=== PATIENT | female | born 1940 | race Asian ===

== ENCOUNTER → 2016-04-07 | Outpatient (CLI) | payer BC ==
[~2016-04-07] MED LIST: ATEN50TA; TIMO5DRO7
[2016-04-07 15:37] LABS: BASOPHILS % 0.8 % (0.0-2.0); EOSINOPHILS # 0.5 10^3/ul (0.0-0.5); EOSINOPHILS % 10.6 % (0.0-7.0); HEMATOCRIT 40.7 % (37.0-47.0); HEMOGLOBIN 13.5 g/dl (12.0-16.0); LYMPHOCYTES # 1.2 10^3/ul (0.8-2.9); LYMPHOCYTES % 26.7 % (15.0-51.0); MEAN CORPUSCULAR HEMOGLOBIN 32.3 pg (29.0-33.0); MEAN CORPUSCULAR HGB CONC 33.2 g/dl (32.0-37.0); MEAN CORPUSCULAR VOLUME 97.3 fl (82.0-101.0); MEAN PLATELET VOLUME 7.9 fl (7.4-10.4); MONOCYTE # 0.5 10^3/ul (0.3-0.9); MONOCYTES % 11.4 % (0.0-11.0); NEUTROPHIL # 2.2 10^3/ul (1.6-7.5); NEUTROPHILS % 50.5 % (39.0-77.0); PLATELET COUNT 191 10^3/UL (140-440); RED BLOOD COUNT 4.18 10^6/ul (4.20-5.40); RED CELL DISTRIBUTION WIDTH 15.1 % (11.5-14.5); UNCORRECTED WBC 4.4 10^3/ul (4.8-10.8); WHITE BLOOD COUNT 4.4 10^3/ul (4.8-10.8)
[2016-04-07 15:38] LABS: CONDITION 1; LH ANALYZER COMMENTS 1
[2016-04-07 16:04] LABS: ALBUMIN 4.6 g/dl (3.3-4.9); CHLORIDE 97 mmol/L (97-110)
[2016-04-07 16:05] LABS: SODIUM 140 mmol/L (135-144)
[2016-04-07 16:07] LABS: ALBUMIN/GLOBULIN RATIO 1.53; ALKALINE PHOSPHATASE 83 IU/L (42-121); ANION GAP 16 (8-16); ASPARTATE AMINO TRANSFERASE 44 IU/L (15-46); BILIRUBIN,INDIRECT 0.4 mg/dl (0-1.1); BILIRUBIN,TOTAL 0.4 mg/dl (0.2-1.3); CARBON DIOXIDE 31 mmol/L (21-31); CREATININE 0.64 mg/dl (0.44-1.00); TOTAL PROTEIN 7.6 g/dl (6.1-8.1)
[2016-04-07 16:08] LABS: ALANINE AMINOTRANSFERASE 39 IU/L (13-69); BLOOD UREA NITROGEN 16 mg/dl (7-20); CALCIUM 9.4 mg/dl (8.4-10.2); GLUCOSE 95 mg/dl (70-220)
[2016-04-07 17:48] LABS: FOLATE > 20.0 ng/ml (2.8-20.0)
== END | disposition home or self-care (01) ==
LOC: LAB 15:10
PROVIDERS: ATTEND Internal Medicine Hematology & Oncology
DX: D46.9 Myelodysplastic syndrome, unspecified (principal)
CPT/HCPCS: 80053; 82728; 82746; 85025

== ENCOUNTER → 2016-04-27 | Outpatient (CLI) | payer BC ==
[2016-04-27 06:15] LABS: ALBUMIN 4.2 g/dl (3.3-4.9)
[2016-04-27 06:16] LABS: POTASSIUM 4.4 mmol/L (3.5-5.1)
[2016-04-27 06:18] LABS: ALBUMIN/GLOBULIN RATIO 1.27; BILIRUBIN,INDIRECT 0.3 mg/dl (0-1.1); BILIRUBIN,TOTAL 0.3 mg/dl (0.2-1.3); CREATININE 0.61 mg/dl (0.44-1.00); TOTAL PROTEIN 7.5 g/dl (6.1-8.1)
[2016-04-27 06:19] LABS: CALCIUM 9.2 mg/dl (8.4-10.2); CHOL/HDL RATIO 3.3 RATIO
[2016-04-27 06:28] LABS: BASOPHILS % 0.8 % (0.0-2.0); EOSINOPHILS # 0.5 10^3/ul (0.0-0.5); EOSINOPHILS % 13.7 % (0.0-7.0); HEMATOCRIT 41.4 % (37.0-47.0); HEMOGLOBIN 13.8 g/dl (12.0-16.0); LYMPHOCYTES # 1.4 10^3/ul (0.8-2.9); LYMPHOCYTES % 34.8 % (15.0-51.0); MEAN CORPUSCULAR HEMOGLOBIN 31.5 pg (29.0-33.0); MEAN CORPUSCULAR HGB CONC 33.4 g/dl (32.0-37.0); MEAN CORPUSCULAR VOLUME 94.3 fl (82.0-101.0); MEAN PLATELET VOLUME 7.4 fl (7.4-10.4); MONOCYTE # 0.5 10^3/ul (0.3-0.9); MONOCYTES % 12.2 % (0.0-11.0); NEUTROPHIL # 1.5 10^3/ul (1.6-7.5); NEUTROPHILS % 38.5 % (39.0-77.0); PLATELET COUNT 279 10^3/UL (140-440); RED BLOOD COUNT 4.39 10^6/ul (4.20-5.40); RED CELL DISTRIBUTION WIDTH 15.1 % (11.5-14.5)
[2016-04-27 06:41] LABS: CONDITION 1; LH ANALYZER COMMENTS 1
[2016-04-27 06:49] LABS: THYROID STIMULATING HORMONE 1.86 MIU/L (0.465-4.680)
== END | disposition home or self-care (01) ==
LOC: LAB 05:34
PROVIDERS: ATTEND Internal Medicine
DX: E78.5 Hyperlipidemia, unspecified (principal); R73.03 Prediabetes; E03.9 Hypothyroidism, unspecified
CPT/HCPCS: 80053; 80061; 83036; 84436; 84443; 85025

== ENCOUNTER → 2016-05-20 | Outpatient (CLI) | payer BC ==
[2016-05-20 15:15] LABS: BASOPHILS % 0.8 % (0.0-2.0); EOSINOPHILS # 0.2 10^3/ul (0.0-0.5); EOSINOPHILS % 5.9 % (0.0-7.0); HEMATOCRIT 41.6 % (37.0-47.0); LYMPHOCYTES # 1.4 10^3/ul (0.8-2.9); LYMPHOCYTES % 38.6 % (15.0-51.0); MEAN CORPUSCULAR HEMOGLOBIN 31.7 pg (29.0-33.0); MEAN CORPUSCULAR HGB CONC 33.7 g/dl (32.0-37.0); MEAN PLATELET VOLUME 8.1 fl (7.4-10.4); MONOCYTE # 0.3 10^3/ul (0.3-0.9); MONOCYTES % 8.8 % (0.0-11.0); NEUTROPHIL # 1.6 10^3/ul (1.6-7.5); NEUTROPHILS % 45.9 % (39.0-77.0); PLATELET COUNT 233 10^3/UL (140-440); RED BLOOD COUNT 4.42 10^6/ul (4.20-5.40); RED CELL DISTRIBUTION WIDTH 16.1 % (11.5-14.5); UNCORRECTED WBC 3.6 10^3/ul (4.8-10.8); WHITE BLOOD COUNT 3.6 10^3/ul (4.8-10.8)
[2016-05-20 15:18] LABS: ALBUMIN 4.4 g/dl (3.3-4.9); CHLORIDE 102 mmol/L (97-110); CONDITION 1; LH ANALYZER COMMENTS 1
[2016-05-20 15:19] LABS: POTASSIUM 4.3 mmol/L (3.5-5.1); SODIUM 140 mmol/L (135-144)
[2016-05-20 15:21] LABS: ALBUMIN/GLOBULIN RATIO 1.69; ALKALINE PHOSPHATASE 99 IU/L (42-121); ANION GAP 16 (8-16); ASPARTATE AMINO TRANSFERASE 48 IU/L (15-46); BILIRUBIN,INDIRECT 0.4 mg/dl (0-1.1); BILIRUBIN,TOTAL 0.4 mg/dl (0.2-1.3); BLOOD UREA NITROGEN 17 mg/dl (7-20); CARBON DIOXIDE 26 mmol/L (21-31); GLUCOSE 102 mg/dl (70-220)
[2016-05-20 15:22] LABS: ALANINE AMINOTRANSFERASE 47 IU/L (13-69); CALCIUM 9.1 mg/dl (8.4-10.2)
[2016-05-20 16:32] LABS: FOLATE > 20.0 ng/ml (2.8-20.0)
== END | disposition home or self-care (01) ==
LOC: LAB 14:37
PROVIDERS: ATTEND Internal Medicine Hematology & Oncology
DX: D46.9 Myelodysplastic syndrome, unspecified (principal)
CPT/HCPCS: 80053; 82728; 82746; 85025

== ENCOUNTER → 2016-07-19 | Outpatient (CLI) | payer BC ==
[2016-07-19 15:37] LABS: ADD SCAN DIFF NO
[2016-07-19 15:41] LABS: BASOPHIL # 0.1 10^3/ul (0.0-0.1); BASOPHILS % 1.3 % (0.0-2.0); EOSINOPHILS # 0.2 10^3/ul (0.0-0.5); EOSINOPHILS % 5.1 % (0.0-7.0); HEMATOCRIT 38.2 % (37.0-47.0); HEMOGLOBIN 12.9 g/dl (12.0-16.0); LYMPHOCYTES # 1.6 10^3/ul (0.8-2.9); LYMPHOCYTES % 43.6 % (15.0-51.0); MEAN CORPUSCULAR HEMOGLOBIN 32.8 pg (29.0-33.0); MEAN CORPUSCULAR HGB CONC 33.8 g/dl (32.0-37.0); MEAN CORPUSCULAR VOLUME 97.2 fl (82.0-101.0); MEAN PLATELET VOLUME 9.8 fl (7.4-10.4); MONOCYTE # 0.4 10^3/ul (0.3-0.9); MONOCYTES % 9.9 % (0.0-11.0); NEUTROPHIL # 1.5 10^3/ul (1.6-7.5); NEUTROPHILS % 40.1 % (39.0-77.0); PLATELET COUNT 244 10^3/UL (140-415); RED BLOOD COUNT 3.93 10^6/ul (4.20-5.40); RED CELL DISTRIBUTION WIDTH 15.9 % (11.5-14.5); WHITE BLOOD COUNT 3.7 10^3/ul (4.8-10.8)
[2016-07-19 15:56] LABS: ALANINE AMINOTRANSFERASE 36 IU/L (13-69); ALBUMIN 4.4 g/dl (3.3-4.9); ALBUMIN/GLOBULIN RATIO 1.57; ALKALINE PHOSPHATASE 111 IU/L (42-121); ANION GAP 13 (8-16); ASPARTATE AMINO TRANSFERASE 47 IU/L (15-46); BILIRUBIN,INDIRECT 0.4 mg/dl (0-1.1); BILIRUBIN,TOTAL 0.4 mg/dl (0.2-1.3); BLOOD UREA NITROGEN 19 mg/dl (7-20); CALCIUM 9.3 mg/dl (8.4-10.2); CARBON DIOXIDE 25 mmol/L (21-31); CHLORIDE 104 mmol/L (97-110); CREATININE 0.65 mg/dl (0.44-1.00); GLUCOSE 106 mg/dl (70-220); POTASSIUM 4.4 mmol/L (3.5-5.1); SODIUM 138 mmol/L (135-144); TOTAL PROTEIN 7.2 g/dl (6.1-8.1)
[2016-07-19 17:06] LABS: FOLATE > 20.0 ng/ml (2.8-20.0)
== END | disposition home or self-care (01) ==
LOC: LAB 15:20
PROVIDERS: ATTEND Internal Medicine Hematology & Oncology
DX: D46.9 Myelodysplastic syndrome, unspecified (principal)
CPT/HCPCS: 80053; 82728; 82746; 85025

== ENCOUNTER → 2016-08-02 | Outpatient (CLI) | payer BC ==
[2016-08-02 15:25] LABS: ADD SCAN DIFF NO
[2016-08-02 15:28] LABS: BASOPHILS % 0.6 % (0.0-2.0); EOSINOPHILS # 0.3 10^3/ul (0.0-0.5); EOSINOPHILS % 4.8 % (0.0-7.0); HEMATOCRIT 33.5 % (37.0-47.0); HEMOGLOBIN 11.4 g/dl (12.0-16.0); LYMPHOCYTES % 36.6 % (15.0-51.0); MEAN CORPUSCULAR HEMOGLOBIN 32.7 pg (29.0-33.0); MEAN PLATELET VOLUME 9.7 fl (7.4-10.4); MONOCYTE # 0.5 10^3/ul (0.3-0.9); MONOCYTES % 8.7 % (0.0-11.0); NEUTROPHIL # 2.6 10^3/ul (1.6-7.5); NEUTROPHILS % 49.1 % (39.0-77.0); PLATELET COUNT 249 10^3/UL (140-415); RED BLOOD COUNT 3.49 10^6/ul (4.20-5.40); RED CELL DISTRIBUTION WIDTH 15.2 % (11.5-14.5); WHITE BLOOD COUNT 5.4 10^3/ul (4.8-10.8)
== END | disposition home or self-care (01) ==
LOC: LAB 15:02
PROVIDERS: ATTEND Internal Medicine Hematology & Oncology
DX: D46.9 Myelodysplastic syndrome, unspecified (principal)
CPT/HCPCS: 85025

== ENCOUNTER → 2016-12-25 | Outpatient (CLI) | payer BC ==
[2016-12-25 09:00] LABS: BASOPHIL # 0.1 10^3/ul (0.0-0.1); EOSINOPHILS # 0.2 10^3/ul (0.0-0.5); EOSINOPHILS % 5.3 % (0.0-7.0); HEMOGLOBIN 13.3 g/dl (12.0-16.0); LYMPHOCYTES % 34.3 % (15.0-51.0); MEAN CORPUSCULAR HGB CONC 33.3 g/dl (32.0-37.0); MEAN CORPUSCULAR VOLUME 102.3 fl (82.0-101.0); MEAN PLATELET VOLUME 9.9 fl (7.4-10.4); MONOCYTE # 0.4 10^3/ul (0.3-0.9); NEUTROPHIL # 1.3 10^3/ul (1.6-7.5); NEUTROPHILS % 44.1 % (39.0-77.0); PLATELET COUNT 193 10^3/UL (140-415); RED BLOOD COUNT 3.91 10^6/ul (4.20-5.40)
[2016-12-25 09:07] LABS: ALBUMIN/GLOBULIN RATIO 1.6; BILIRUBIN,INDIRECT 0.5 mg/dl (0-1.1); BILIRUBIN,TOTAL 0.5 mg/dl (0.2-1.3); CALCIUM 8.8 mg/dl (8.4-10.2); CHOL/HDL RATIO 2.3 RATIO; CREATININE 0.72 mg/dl (0.44-1.00); POTASSIUM 4.1 mmol/L (3.5-5.1); TOTAL PROTEIN 6.5 g/dl (6.1-8.1)
== END | disposition home or self-care (01) ==
LOC: LAB 08:13
PROVIDERS: ATTEND Internal Medicine
DX: E78.5 Hyperlipidemia, unspecified (principal); E55.9 Vitamin D deficiency, unspecified; D64.9 Anemia, unspecified
CPT/HCPCS: 80053; 80061; 82306; 85025

== ENCOUNTER → 2017-03-18 | Outpatient (CLI) | payer BC ==
[2017-03-18 18:07] LABS: BASOPHIL # 0.1 10^3/ul (0.0-0.1); BASOPHILS % 1.8 % (0.0-2.0); EOSINOPHILS # 0.2 10^3/ul (0.0-0.5); EOSINOPHILS % 6.3 % (0.0-7.0); HEMATOCRIT 37.2 % (37.0-47.0); HEMOGLOBIN 12.6 g/dl (12.0-16.0); LYMPHOCYTES # 1.5 10^3/ul (0.8-2.9); LYMPHOCYTES % 39.7 % (15.0-51.0); MEAN CORPUSCULAR HEMOGLOBIN 34.7 pg (29.0-33.0); MEAN CORPUSCULAR HGB CONC 33.9 g/dl (32.0-37.0); MEAN CORPUSCULAR VOLUME 102.5 fl (82.0-101.0); MEAN PLATELET VOLUME 9.4 fl (7.4-10.4); MONOCYTE # 0.5 10^3/ul (0.3-0.9); MONOCYTES % 13.1 % (0.0-11.0); NEUTROPHIL # 1.5 10^3/ul (1.6-7.5); NEUTROPHILS % 38.8 % (39.0-77.0); PLATELET COUNT 243 10^3/UL (140-415); RED BLOOD COUNT 3.63 10^6/ul (4.20-5.40); RED CELL DISTRIBUTION WIDTH 14.6 % (11.5-14.5); WHITE BLOOD COUNT 3.8 10^3/ul (4.8-10.8)
[2017-03-18 18:32] LABS: ALBUMIN 4.1 g/dl (3.3-4.9); ALBUMIN/GLOBULIN RATIO 1.41; BILIRUBIN,INDIRECT 0.3 mg/dl (0-1.1); BILIRUBIN,TOTAL 0.3 mg/dl (0.2-1.3); CREATININE 0.81 mg/dl (0.44-1.00); POTASSIUM 4.5 mmol/L (3.5-5.1); URIC ACID 4.3 mg/dl (3.1-7.9)
== END | disposition home or self-care (01) ==
LOC: LAB 17:44
PROVIDERS: ATTEND Internal Medicine Hematology & Oncology
DX: D46.9 Myelodysplastic syndrome, unspecified (principal)
CPT/HCPCS: 80053; 83615; 84560; 85025

== ENCOUNTER → 2017-05-18 | Outpatient (CLI) | END | disposition home or self-care (01) ==

== ENCOUNTER → 2017-07-07 | Outpatient (CLI) | END | disposition home or self-care (01) ==

== ENCOUNTER → 2017-08-03 | Outpatient (CLI) | END | disposition home or self-care (01) ==

== ENCOUNTER → 2017-10-07 | Outpatient (CLI) | END | disposition home or self-care (01) ==

== ENCOUNTER → 2018-03-14 | Outpatient (CLI) | END | disposition home or self-care (01) ==

== ENCOUNTER → 2018-04-06 | Outpatient (CLI) | payer BC | END | disposition home or self-care (01) | LOC: LAB 08:45 | PROVIDERS: ATTEND Internal Medicine Hematology & Oncology | DX: D46.9 Myelodysplastic syndrome, unspecified (principal) | CPT/HCPCS: 85025 ==

== ENCOUNTER → 2018-05-29 | Outpatient (CLI) | payer BC | END | disposition home or self-care (01) | LOC: LAB 05:43 | PROVIDERS: ATTEND Internal Medicine Hematology & Oncology | DX: D46.9 Myelodysplastic syndrome, unspecified (principal) | CPT/HCPCS: 85025 ==

== ENCOUNTER → 2018-06-26 | Outpatient (CLI) | payer BC | END | disposition home or self-care (01) | LOC: LAB 15:05 | PROVIDERS: ATTEND Internal Medicine Hematology & Oncology | DX: Z00.00 Encounter for general adult medical examination without abnormal findings (principal) | CPT/HCPCS: 85025 ==

== ENCOUNTER → 2018-07-04 | Outpatient (CLI) | payer BC | END | disposition home or self-care (01) | LOC: LAB 05:39 | PROVIDERS: ATTEND Internal Medicine | DX: E03.9 Hypothyroidism, unspecified (principal); E55.9 Vitamin D deficiency, unspecified; E78.5 Hyperlipidemia, unspecified | CPT/HCPCS: 80053; 80061; 82306; 83036; 85025 ==

== ENCOUNTER → 2018-07-24 | Outpatient (CLI) | payer BC | END | disposition home or self-care (01) | LOC: LAB 15:11 | PROVIDERS: ATTEND Internal Medicine Hematology & Oncology | DX: D46.9 Myelodysplastic syndrome, unspecified (principal) | CPT/HCPCS: 85025 ==

== ENCOUNTER → 2018-08-25 | Outpatient (CLI) | payer BC | END | disposition home or self-care (01) | LOC: LAB 15:34 | PROVIDERS: ATTEND Internal Medicine Hematology & Oncology | DX: D46.9 Myelodysplastic syndrome, unspecified (principal) | CPT/HCPCS: 85025 ==

== ENCOUNTER → 2018-09-29 | Outpatient (CLI) | payer BC | END | disposition home or self-care (01) | LOC: LAB 15:09 | PROVIDERS: ATTEND Internal Medicine Hematology & Oncology | DX: C94.6 Myelodysplastic disease, not elsewhere classified (principal) | CPT/HCPCS: 85025 ==

== ENCOUNTER → 2018-10-30 | Outpatient (CLI) | payer BC | END | disposition home or self-care (01) | LOC: LAB 15:22 | PROVIDERS: ATTEND Internal Medicine Hematology & Oncology | DX: Z00.00 Encounter for general adult medical examination without abnormal findings (principal) | CPT/HCPCS: 85025 ==

== ENCOUNTER → 2018-12-01 | Outpatient (CLI) | payer BC | END | disposition home or self-care (01) | LOC: LAB 15:12 | PROVIDERS: ATTEND Internal Medicine Hematology & Oncology | DX: D46.9 Myelodysplastic syndrome, unspecified (principal) | CPT/HCPCS: 85025 ==